=== PATIENT | male | born 1960 | race Caucasian/White ===

== ENCOUNTER → 2017-02-02 | Outpatient (CLI) | payer MEDICARE, MEDICAID ==
[~2017-02-02] MED LIST: BACTRIM DS TAB1 EACH PO; DEXAMETHASONE/NE5 M1 OP; MAGNESIUM CITRA1 BOT PO; ZOCOR20 MG PO
--- NOTE | 2017-02-02 09:58 | RADIOLOGY REPORT PS360 ---
CT SINUS (MAX-FACIAL W/O CONT) CLINICAL INDICATION: PERIORBITAL CELLULITIS OF RT EYE ORDERING PHYSICIAN: Russell Hummel MD PATIENT AGE: 56 years COMPARISON: None TECHNIQUE:Axial, sagittal, and coronal images are generated and reviewed without contrast Patient was scanned lying on his right side. IV contrast was not utilized somewhat limiting the exam. FINDINGS: There is mild soft tissue swelling in the right periorbital region. No obvious abscess. No obvious intra or extraconal mass or abscess. No bony erosive changes. Mild mucosal thickening involves the ethmoid sinuses on both sides. There is an air-fluid level along the deep ended portion of the right maxillary sinus medially as the patient is lying on his side along with some mild mucosal thickening of the right maxillary sinus. No fracture. Some mild mucus interspersed with gas within the sphenoid sinus on the right. IMPRESSION: 1. Mild soft tissue swelling in the right periorbital region suggesting mild periorbital cellulitis without obvious abscess. 2. Sinusitis with air-fluid level right maxillary sinus.
== END ==
LOC: RAD 09:00
DX: L03.213 Periorbital cellulitis (principal)

== ENCOUNTER → 2017-03-22 | Outpatient (CLI) | payer MEDICARE, MEDICAID ==
[2017-03-22 13:28] LABS: HEMOGLOBIN 16.8 g/dL (14.1-18.0); LYMPH # 1.4 K/mm3 (0.7-4.5); LYMPH % 17.6 % (10-50)
[2017-03-22 15:43] LABS: NEUTROPHILS 80 % (42-76)
[2017-03-22 18:04] LABS: BUN 11 mg/dL (7-18)
[2017-03-22 18:41] LABS: GFR (ESTIMATED) 100 ML/MIN (>60)
== END ==
LOC: LAB 12:22
PROVIDERS: Internal Medicine Adolescent Medicine
DX: R27.0 Ataxia, unspecified (principal); E78.5 Hyperlipidemia, unspecified